=== PATIENT | male | born 1990 | race Caucasian/White ===

== ENCOUNTER 2021-09-23 09:57 | Inpatient (IN) | payer OTHER, SELFPAY ==
[2021-09-23 10:01] VITALS: BP 161/100; PULSE 97; RESP 14; TEMP 36.7; O2SAT 98; BMI 19.0
--- NOTE | 2021-09-23 10:14 | W.ED.PSYCHS ---
Documented by User: EUGENIA Da Silva 09/23/21 11:41 HPI - Psych General: Chief Complaint: Psychiatric Symptoms Stated Complaint: psych Time Seen by Provider: 09/23/21 09:58 Source: patient Mode of arrival: ambulatory Limitations: no limitations History of Present Illness: Patient is a 31-year-old male with a history of schizophrenia, bipolar, PTSD, ADHD, and depression here for complaints of suicidal ideations. Patient states a week ago he found out that his baby demarcus was cheating on him with his brother whom he was residing with. Patient states over the past week because of this information he has been extremely depressed and suicidal. He states he has a plan to overdose on medications. He states at one point he was on several medications for the above psychiatric diagnoses but states he has been off of these for quite some time. He reports he was doing pretty good without the medications however the current situation has caused him significant distress. He is not homicidal. No hallucinations. MD complaint: suicidal ideation and feels depressed Onset (ago): day(s) Duration: constant History of same: Yes Context: significant life stressor Associated psychiatric symptoms: depression and suicidal ideation Associated symptoms: Reports depression and suicidal ideation; Deny auditory hallucinations, visual hallucinations or homicidal ideation Treatments prior to arrival: none If self harm: has plan Review of Systems Const: Denies: fever(s) or chills Card: Denies: chest pain, palpitations, lightheadedness or syncope Resp: Denies: dyspnea GI: Denies: abdominal pain, nausea, vomiting or diarrhea Skin/Breast: Denies: rash Neuro: Denies: headache(s) Psych: Reports: anxiety, depression, hopelessness and suicidal ideation; Denies: panic attacks, paranoia, visual hallucinations, auditory hallucinations or homicidal ideation Physical Exam Const: COMMON NORMALS: no acute distress, patient oriented x3, alert and well nourished GENERAL APPEARANCE: cooperative and well kempt Resp: COMMON NORMALS: normal respiratory effort and clear to auscultation bilaterally AUSCULTATION: clear to auscultation bilaterally Cardio: COMMON NORMALS: regular rate and regular rhythm RATE: regular rate RHYTHM: regular rhythm Neuro: COMMON NORMALS: patient oriented x3 SENSORIUM/ORIENTATION: Yes alert Psych: COMMON NORMALS: mental status grossly normal, Normal thought process present, cooperative, normal affect, speech normal, activity/motor behavior normal, denies hallucinations and denies homicidal ideation APPEARANCE: Yes grossly normal and Yes well kempt ATTITUDE: Yes calm ACTIVITY/MOTOR BEHAVIOR: Yes appropriate eye contact and No psychomotor agitation SPEECH: Yes normal speech MOOD & AFFECT: Yes euthymic mood THOUGHT PROCESS: Normal thought process present THOUGHT CONTENT: Yes Normal thought content present ATTENTION/CONCENTRATION: Yes attention grossly intact and Yes concentration grossly intact MEMORY/COGNITION: Yes memory grossly intact and Yes cognition grossly intact INSIGHT: Good insight present (Psych) JUDGEMENT: Good judgement present (Psych) Course Consultations: Consultation #1: Dr. Frances-accepts to NPU Vital Signs: Vital signs: Vital Signs Temperature 98.1 F 09/23/21 13:30 Pulse Rate 83 09/23/21 13:30 Respiratory Rate 16 09/23/21 13:30 Blood Pressure 134/93 09/23/21 13:30 Pulse Oximetry 98 09/23/21 13:30 MDM - Psych Medical Decision Making Patient will be an admit to NPU to Dr. Frances for depression/SI. Affidavit placed on chart. Lab Data : 09/23/21 10:15 09/23/21 10:15 Laboratory Results WBC 8.7 10^3/uL (4.0-10.0) 09/23/21 10:15 RBC 4.76 10^6/uL (4.1-5.3) 09/23/21 10:15 Hgb 15.2 g/dL (11.7-16.6) 09/23/21 10:15 Hct 43.5 % (42.0-52.0) 09/23/21 10:15 MCV 91.4 fl (80-94) 09/23/21 10:15 MCH 31.9 pg (28.0-34.0) 09/23/21 10:15 MCHC 34.9 g/dL (30.0-36.0) 09/23/21 10:15 RDW 12.7 % (12.1-15.1) 09/23/21 10:15 Plt Count 387 10^3/cmm (130-400) 09/23/21 10:15 MPV 9.0 fL (7.4-10.4) 09/23/21 10:15 Neut % (Auto) 73.4 % 09/23/21 10:15 Lymph % (Auto) 16.1 % 09/23/21 10:15 Cost[place] % (Auto) 8.4 % 09/23/21 10:15 Eos % (Auto) 1.6 % 09/23/21 10:15 Baso % (Auto) 0.3 % 09/23/21 10:15 Neut # (Auto) 6.38 10^3/uL (1.8-7.7) 09/23/21 10:15 Lymph # (Auto) 1.4 10^3/uL (0.8-4.8) 09/23/21 10:15 [place] # (Auto) 0.7 10^3/uL (0.2-0.9) 09/23/21 10:15 Eos # (Auto) 0.1 10^3/uL (0.0-0.8) 09/23/21 10:15 Baso # (Auto) 0.0 10^3/uL (0.0-0.1) 09/23/21 10:15 Nucleated RBC % (auto) 0 % 09/23/21 10:15 Nucleated RBCs # 0.0 /100WBC 09/23/21 10:15 Sodium 137 mmol/L (136-145) 09/23/21 10:15 Potassium 3.8 mmol/L (3.5-5.1) 09/23/21 10:15 Chloride 97 mmol/L (98-107) L 09/23/21 10:15 Carbon Dioxide 26 mmol/L (22-29) 09/23/21 10:15 Anion Gap 17.8 (5-19) 09/23/21 10:15 BUN 8 mg/dL (6-20) 09/23/21 10:15 Creatinine 0.7 mg/dL (0.7-1.2) 09/23/21 10:15 GFR Calculation 133.3 mL/min (90-130) H 09/23/21 10:15 Glucose 79 mg/dL (65-115) 09/23/21 10:15 Calculated Osmolality 281 mOsm/kg (285-295) L 09/23/21 10:15 Calcium 9.4 mg/dL (8.5-10.5) 09/23/21 10:15 Total Bilirubin 0.4 mg/dL (0.15-1.2) 09/23/21 10:15 AST 23 U/L (0-40) 09/23/21 10:15 ALT 13 U/L (0-41) 09/23/21 10:15 Alkaline Phosphatase 62 IU/L (40-130) 09/23/21 10:15 Total Protein 7.4 g/dL (6.6-8.7) 09/23/21 10:15 Albumin 4.5 g/dL (3.5-5.2) 09/23/21 10:15 Globulin 2.9 g/dL (1.3-4.6) 09/23/21 10:15 Salicylates < 0.3 mg/dL (3-10) L 09/23/21 10:15 Urine Opiates Screen Negative ng/mL (Negative) 09/23/21 10:19 Acetaminophen < 5.0 ug/mL (10-30) L 09/23/21 10:15 Ur Barbiturates Screen Negative ng/mL (Negative) 09/23/21 10:19 Ur Phencyclidine Scrn Negative ng/mL (Negative) 09/23/21 10:19 Ur Amphetamines Screen Negative ng/mL (Negative) 09/23/21 10:19 U Benzodiazepines Scrn Negative ng/mL (Negative) 09/23/21 10:19 Urine Cocaine Screen Negative ng/mL (Negative) 09/23/21 10:19 U Marijuana (THC) Screen Positive ng/mL (Negative) H 09/23/21 10:19 Ethyl Alcohol < 10 mg/dL (0-10) 09/23/21 10:15 Discharge Plan Discharge Patient Disposition: Admitted As Inpatient Admit Provider: Nik Frances Clinical Impression: Suicidal ideation Condition: Stable Coding Level of Care Code ED Burn Crew Member for Chg Fwd Exam Expanded Problem Focused Documented by User: Artem Tamayo DO 09/23/21 14:28 HPI - Psych General: Chief Complaint: Psychiatric Symptoms Stated Complaint: psych Time Seen by Provider: 09/23/21 09:58 Course Vital Signs: Vital signs: Vital Signs Temperature 98.1 F 09/23/21 13:30 Pulse Rate 83 09/23/21 13:30 Respiratory Rate 16 09/23/21 13:30 Blood Pressure 134/93 09/23/21 13:30 Pulse Oximetry 98 09/23/21 13:30 MDM - Psych Medical Decision Making Patient will be an admit to NPU to Dr. Frances for depression/SI. Affidavit placed on chart. Chart reviewed and patient discussed with midlevel. Agree with assessment and plan. Medical Records I reviewed the patient's medical records. Lab Data I reviewed the patient's lab results. : 09/23/21 10:15 09/23/21 10:15 Laboratory Results WBC 8.7 10^3/uL (4.0-10.0) 09/23/21 10:15 RBC 4.76 10^6/uL (4.1-5.3) 09/23/21 10:15 Hgb 15.2 g/dL (11.7-16.6) 09/23/21 10:15 Hct 43.5 % (42.0-52.0) 09/23/21 10:15 MCV 91.4 fl (80-94) 09/23/21 10:15 MCH 31.9 pg (28.0-34.0) 09/23/21 10:15 MCHC 34.9 g/dL (30.0-36.0) 09/23/21 10:15 RDW 12.7 % (12.1-15.1) 09/23/21 10:15 Plt Count 387 10^3/cmm (130-400) 09/23/21 10:15 MPV 9.0 fL (7.4-10.4) 09/23/21 10:15 Neut % (Auto) 73.4 % 09/23/21 10:15 Lymph % (Auto) 16.1 % 09/23/21 10:15 Cost[place] % (Auto) 8.4 % 09/23/21 10:15 Eos % (Auto) 1.6 % 09/23/21 10:15 Baso % (Auto) 0.3 % 09/23/21 10:15 Neut # (Auto) 6.38 10^3/uL (1.8-7.7) 09/23/21 10:15 Lymph # (Auto) 1.4 10^3/uL (0.8-4.8) 09/23/21 10:15 [place] # (Auto) 0.7 10^3/uL (0.2-0.9) 09/23/21 10:15 Eos # (Auto) 0.1 10^3/uL (0.0-0.8) 09/23/21 10:15 Baso # (Auto) 0.0 10^3/uL (0.0-0.1) 09/23/21 10:15 Nucleated RBC % (auto) 0 % 09/23/21 10:15 Nucleated RBCs # 0.0 /100WBC 09/23/21 10:15 Sodium 137 mmol/L (136-145) 09/23/21 10:15 Potassium 3.8 mmol/L (3.5-5.1) 09/23/21 10:15 Chloride 97 mmol/L (98-107) L 09/23/21 10:15 Carbon Dioxide 26 mmol/L (22-29) 09/23/21 10:15 Anion Gap 17.8 (5-19) 09/23/21 10:15 BUN 8 mg/dL (6-20) 09/23/21 10:15 Creatinine 0.7 mg/dL (0.7-1.2) 09/23/21 10:15 GFR Calculation 133.3 mL/min (90-130) H 09/23/21 10:15 Glucose 79 mg/dL (65-115) 09/23/21 10:15 Calculated Osmolality 281 mOsm/kg (285-295) L 09/23/21 10:15 Calcium 9.4 mg/dL (8.5-10.5) 09/23/21 10:15 Total Bilirubin 0.4 mg/dL (0.15-1.2) 09/23/21 10:15 AST 23 U/L (0-40) 09/23/21 10:15 ALT 13 U/L (0-41) 09/23/21 10:15 Alkaline Phosphatase 62 IU/L (40-130) 09/23/21 10:15 Total Protein 7.4 g/dL (6.6-8.7) 09/23/21 10:15 Albumin 4.5 g/dL (3.5-5.2) 09/23/21 10:15 Globulin 2.9 g/dL (1.3-4.6) 09/23/21 10:15 Salicylates < 0.3 mg/dL (3-10) L 09/23/21 10:15 Urine Opiates Screen Negative ng/mL (Negative) 09/23/21 10:19 Acetaminophen < 5.0 ug/mL (10-30) L 09/23/21 10:15 Ur Barbiturates Screen Negative ng/mL (Negative) 09/23/21 10:19 Ur Phencyclidine Scrn Negative ng/mL (Negative) 09/23/21 10:19 Ur Amphetamines Screen Negative ng/mL (Negative) 09/23/21 10:19 U Benzodiazepines Scrn Negative ng/mL (Negative) 09/23/21 10:19 Urine Cocaine Screen Negative ng/mL (Negative) 09/23/21 10:19 U Marijuana (THC) Screen Positive ng/mL (Negative) H 09/23/21 10:19 Ethyl Alcohol < 10 mg/dL (0-10) 09/23/21 10:15 Discharge Plan Discharge Patient Disposition: Admitted As Inpatient Admit Provider: Nik Frances Clinical Impression: Suicidal ideation Condition: Stable Coding Level of Care Code ED Burn Crew Member for Gradyg Fwd Exam Expanded Problem Focused
[2021-09-23 10:25] LABS: Basophils % 0.3 %; Eosinophils # 0.1 10^3/uL (0.0-0.8); Eosinophils % 1.6 %; Hematocrit 43.5 % (42.0-52.0); Hemoglobin 15.2 g/dL (11.7-16.6); Lymphocytes # 1.4 10^3/uL (0.8-4.8); Lymphocytes % 16.1 %; Mean Corpuscular HGB Conc 34.9 g/dL (30.0-36.0); Mean Corpuscular Hemoglobin 31.9 pg (28.0-34.0); Mean Corpuscular Volume 91.4 fl (80-94); Monocytes # 0.7 10^3/uL (0.2-0.9); Monocytes % 8.4 %; Neutrophils # 6.38 10^3/uL (1.8-7.7); Neutrophils % 73.4 %; Nucleated Red Blood Cells % 0 %; Platelet Count 387 10^3/cmm (130-400); Red Blood Count 4.76 10^6/uL (4.1-5.3); Red Cell Distribution Width 12.7 % (12.1-15.1); White Blood Count 8.7 10^3/uL (4.0-10.0)
--- NOTE | 2021-09-23 10:26 | PC.PHAR ---
pt states he takes no rx or otc medications-pt states not taken anything for 3-4 months maybe longer-ext med history shows topiramate 50mg tid filled 06/11/21 30d/s-bupropion xl 150mg daily filled 06/09/21-quetiapine 100mg 300mg hs filled 05/29/21 30d/s -clonidine 0.1mg tid prn ax filled 05/28/21 30d/ and atenolol 25mg daily rx filled on 05/28/21 30d/s
[2021-09-23 10:31] VITALS: BP 107/76; PULSE 70; RESP 18; O2SAT 98
[2021-09-23 10:39] LABS: Amphetamines Screen Urine Negative (Negative); Barbiturates Screen Urine Negative (Negative); Benzodiazepines Screen Urine Negative (Negative); Cocaine Screen Urine Negative (Negative); Opiate Screen Urine Negative (Negative); PCP Screen Urine Negative (Negative); THC Screen Urine Positive (Negative)
[2021-09-23 11:03] LABS: Alanine Aminotransferase 13 U/L (0-41); Albumin Level 4.5 g/dL (3.5-5.2); Alkaline Phosphatase 62 IU/L (40-130); Anion Gap 17.8 (5-19); Aspartate Amino Transferase 23 U/L (0-40); Blood Urea Nitrogen 8 mg/dL (6-20); Calcium 9.4 mg/dL (8.5-10.5); Carbon Dioxide 26 mmol/L (22-29); Chloride 97 mmol/L (98-107); Globulin 2.9 g/dL (1.3-4.6); Glomerular Filtration Rate 133.3 mL/min (90-130); Glucose 79 mg/dL (65-115); Osmolality Calculated 281 mOsm/kg (285-295); Potassium 3.8 mmol/L (3.5-5.1); Sodium 137 mmol/L (136-145); Total Bilirubin 0.4 mg/dL (0.15-1.2); Total Protein 7.4 g/dL (6.6-8.7)
[2021-09-23 11:06] LABS: Acetaminophen < 5.0 ug/mL (10-30); Alcohol Level < 10 mg/dL (0-10); Salicylate < 0.3 mg/dL (3-10)
[2021-09-23 12:47] VITALS: BP 116/64; PULSE 69; RESP 18; O2SAT 99
[2021-09-23 13:30] VITALS: BP 134/93; PULSE 83; RESP 16; TEMP 36.7; O2SAT 98
[2021-09-23] MEDS: OLANZapine 5 mg ODT PO (13:38)
--- NOTE | 2021-09-23 14:53 | PC.NURSE ---
at 1338 patient with c/o anxiety. Anxious affect. Zydis 5 mg sl given.
[2021-09-23 20:27] VITALS: BP 110/73; PULSE 68; RESP 15; TEMP 36.7; O2SAT 97
[2021-09-24 06:00] VITALS: BP 119/74; PULSE 84; RESP 16; TEMP 36.6; O2SAT 98
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
[2021-09-24] MEDS: nicotine 21 mg Patch 1 PATCH TRANSDERMA (10:26)
[2021-09-24] MEDS: hyDROXYzine 25 mg Capsule 50 MG PO ×2 (12:02→20:07)
[2021-09-24] MEDS: acetaminophen 325 mg Tablet 650 MG PO (12:04)
--- NOTE | 2021-09-24 12:55 | PC.NURSE ---
PRN MED PT GIVEN 50MG VISTARIL FOR STATED ANXIETY, WILL CONTINUE TO MONITOR.
[2021-09-24 14:00] VITALS: BP 155/95; PULSE 97; RESP 18; TEMP 36.6; O2SAT 98
[2021-09-24] MEDS: nicotine 2 mg Gum BUCCAL (17:08)
[2021-09-24 21:07] VITALS: BP 134/88; PULSE 100; RESP 16; TEMP 36.9; O2SAT 99
[2021-09-24] MEDS: doxepin 10 mg Capsule PO (21:09)
[2021-09-25 06:00] VITALS: BP 114/73; PULSE 73; RESP 16; TEMP 36.7; O2SAT 97
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
[2021-09-25 11:37] VITALS: BP 114/73; PULSE 73; RESP 16; TEMP 36.7; O2SAT 97
== END 2021-09-25 12:44 | disposition home or self-care (01) | DRG 885 ==
LOC: ER 11:52 → NP 14:28
PROVIDERS: Physician Assistant; Admitting Provider Psychiatry & Neurology Psychiatry; Emergency Provider Family Medicine; PCP Physician Assistant Medical; Visit Provider Psychiatry & Neurology Psychiatry
DX: F20.9 Schizophrenia, unspecified (principal); R45.851 Suicidal ideations; F43.10 Post-traumatic stress disorder, unspecified; F90.9 Attention-deficit hyperactivity disorder, unspecified type; Z63.0 Problems in relationship with spouse or partner; Z59.00 Homelessness unspecified; F15.11 Other stimulant abuse, in remission
CPT/HCPCS: 80053; 80306; 80307; 85025; 97165; 99285